=== PATIENT | female | born 1975 ===

== ENCOUNTER 2018-06-30 01:04 | Emergency (ER) | payer BC, OTHER ==
[2018-06-30] MEDS ORDERED: DiphenhydrAMINE 50 mg/ml Inj IV ONE ×2 (01:17→01:30)
--- NOTE | 2018-06-30 01:22 | ED PDOC ---
HPI: Allergic Reaction Time Seen by Provider: 06/30/18 01:08 Chief Complaint (Nursing): Allergic Reaction Chief Complaint (Provider): allergic reaction History Per: Patient History/Exam Limitations: no limitations Onset/Duration Of Symptoms: Hrs Current Symptoms Are (Timing): Still Present Possible Cause: Medication Associated Symptoms: Skin Rash, Swelling, Other (nausea) Home/EMS Treatment: Benadryl Additional Complaint(s): 43 y/o female presents for evaluation of allergic reaction x 1 hour. Patient states she was prescribed Levaquin last week for a sinus infection and noticed mild body rash after first dose which improved with Benadryl. Patient states she has not been taking it consistently and tonight took a dose and shortly after developed skin rash, itching, swelling to ears, itching to throat, and nausea. Denies chest pain, difficulty speaking/swallowing, chest pain, shortn ess of breath, abdominal pain, changes in bowel movements. Past Medical History Reviewed: Historical Data, Nursing Documentation, Vital Signs Vital Signs: Last Vital Signs Temp 98.9 F 06/30/18 01:08 Pulse 109 H 06/30/18 01:08 Resp 18 06/30/18 01:08 BP 122/62 06/30/18 01:08 Pulse Ox 100 06/30/18 01:08 - Medical History PMH: No Chronic Diseases - Surgical History Surgical History: No Surg Hx - Family History Family History: States: No Known Family Hx - Living Arrangements Living Arrangements: With Family - Home Medications Home Medications: Ambulatory Orders Medication Instructions Recorded Cetirizine HCl [Zyrtec] 10 mg PO DAILY #5 tab.rapdis 06/30/18 Famotidine [Pepcid] 20 mg PO BID #8 tab 06/30/18 predniSONE [Prednisone] 60 mg PO DAILY #12 tab 06/30/18 - Allergies Allergies/Adverse Reactions: Allergies Allergy/AdvReac Type Severity Reaction Status Date / Time levofloxacin [From Levaquin] Allergy Intermediate hives, Verified 06/30/18 01:17 swelling to throat, pain in ears w/ nausea Review of Systems ROS Statement: Except As Marked, All Systems Reviewed And Found Negative Gastrointestinal: Positive for: Nausea Skin: Positive for: Rash Physical Exam - Reviewed Nursing Documentation Reviewed: Yes Vital Signs Reviewed: Yes - Physical Exam Appears: Positive for: Well, Non-toxic, Uncomfortable Head Exam: Positive for: ATRAUMATIC, NORMAL INSPECTION, NORMOCEPHALIC Skin: Positive for: Rash (diffuse hives, swelling to bilateral auricles) Eye Exam: Positive for: Normal appearance, Periorbital swelling (bilaterally) ENT: Positive for: Normal ENT Inspection, Other (airway patent) Cardiovascular/Chest: Positive for: Regular Rate, Rhythm Respiratory: Positive for: Normal Breath Sounds Gastrointestinal/Abdominal: Positive for: Normal Exam Back: Positive for: Normal Inspection Extremity: Positive for: Normal ROM Neurologic/Psych: Positive for: Alert, Oriented (x3) - ECG O2 Sat by Pulse Oximetry: 100 - Progress ED Course And Treament: -IV solumedrol -IV pepcid -IV benadryl On re-eval, rash improving. Ear and eye swelling improving. Patient states she is feeling better. Tolerating PO Patient educated on findings, discharged with rx Prednisone, Pepcid, Zyrtec Advised to discontinue Levaquin Follow up with primary doctor within 2 days Return precautions given Disposition - Clinical Impression Clinical Impression: Allergic reaction - Patient ED Disposition Is Patient to be Admitted: No Counseled Patient/Family Regarding: Diagnosis, Need For Followup, Rx Given - Disposition Disposition: Routine/Home Disposition Time: 04:26 Condition: IMPROVED Prescriptions: Cetirizine HCl [Zyrtec] 10 mg PO DAILY #5 tab.rapdis Famotidine [Pepcid] 20 mg PO BID #8 tab predniSONE [Prednisone] 60 mg PO DAILY #12 tab Instructions: Angioedema, Drug Allergy Forms: [facility] (Slovak)
[2018-06-30] MEDS ORDERED: DiphenhydrAMINE 50 mg/ml Inj IV STA (02:47)
[2018-06-30 04:43] VITALS: BP 129/78; PULSE 87; RESP 17; TEMP 98.8; O2SAT 99
== END 2018-06-30 04:54 | disposition home or self-care (01) ==
LOC: H.ER 01:04
DX: T78.40XA Allergy, unspecified, initial encounter (principal); Z88.1 Allergy status to other antibiotic agents
CPT/HCPCS: 96374; 96375; 96376; 99283; J1200; J2405; J2930